=== PATIENT | male | born 1990 | race Caucasian/White ===

== ENCOUNTER 2020-10-21 15:09 | Emergency (ER) | payer OTHER ==
[2020-10-21 15:51] LABS: HEMOGLOBIN 13.5 gm/dl (14.0-17.5); RED BLOOD COUNT 4.47 M/UL (4.20-5.50); WHITE BLOOD COUNT 8.6 K/UL (4.5-11.0)
[2020-10-21 16:15] LABS: BUN/CREATININE RATIO 8 (0-10)
== END 2020-10-21 20:00 | disposition left against medical advice (07) ==
LOC: ER1 15:09
PROVIDERS: Emergency Medicine
DX: R07.9 Chest pain, unspecified (principal); F17.200 Nicotine dependence, unspecified, uncomplicated; Z86.73 Personal history of transient ischemic attack (TIA), and cerebral infarction without residual deficits
CPT/HCPCS: 70450; 71045; 80053; 82550; 82553; 83690; 83735; 83874; 83880; 84100; 84484; 85025; 85379; 85610; 85730; 93005; 96374; 99285; J2310

== ENCOUNTER 2020-10-26 19:21 | Emergency (ER) | payer SELFPAY | END 2020-10-26 19:45 | disposition left against medical advice (07) | LOC: ER1 19:21 | DX: Z53.21 Procedure and treatment not carried out due to patient leaving prior to being seen by health care provider (principal) ==

== ENCOUNTER 2020-10-29 23:02 | Emergency (ER) | payer OTHER ==
[2020-10-30 00:53] LABS: HEMOGLOBIN 14.5 gm/dl (14.0-17.5); RED BLOOD COUNT 4.82 M/UL (4.20-5.50); WHITE BLOOD COUNT 8.5 K/UL (4.5-11.0)
[2020-10-30 01:13] LABS: BUN/CREATININE RATIO 13 (0-10)
[2020-10-30] MEDS ORDERED: ASPIRIN CHEWABL81 MG PO (01:42)
== END 2020-10-30 02:03 | disposition home or self-care (01) ==
LOC: ER1 23:02
PROVIDERS: Physician Assistant
DX: R07.89 Other chest pain (principal); R06.02 Shortness of breath; I10 Essential (primary) hypertension; F17.210 Nicotine dependence, cigarettes, uncomplicated; Z86.73 Personal history of transient ischemic attack (TIA), and cerebral infarction without residual deficits; Z79.899 Other long term (current) drug therapy
CPT/HCPCS: 71045; 80053; 80307; 81001; 82550; 82553; 83874; 84484; 85025; 85379; 85610; 85730; 93005; 99285